=== PATIENT | male | born 1965 | race Hispanic/Latino ===

== ENCOUNTER 2022-12-24 09:07 | Day surgery (SDC) | payer SELFPAY ==
[2022-12-23 13:51] LABS: Absolute Lymphocytes (CBC) 2.3 K/uL (0.7-4.9); Hematocrit 45.8 % (39.6-49.0); Lymphocytes % 36.2 % (15.3-44.8); MCV 89.3 fL (80-100); MPV 7.6 fL (7.6-11.3); RBC Red Blood Cell Count 5.13 M/uL (4.33-5.43)
[2022-12-23 14:02] LABS: Potassium 3.8 mEq/L (3.5-5.1)
[2022-12-24] MEDS ORDERED: Ringers Lactate 1,000 ML IV ONE (09:41)
[2022-12-24] MEDS ORDERED: CEFAZOLIN SODIUM 1 GM/VIAL ONE (09:41)
[2022-12-24] MEDS ORDERED: MIDAZOLAM HCL 2 MG/2 ML INJ ONE (10:33)
[2022-12-24] MEDS ORDERED: FENTANYL CITR 100 MCG/2 ML ONE (10:33)
[2022-12-24] MEDS ORDERED: dexAMETHasone 10 MG/ML VIAL ONE (11:38)
[2022-12-24] MEDS ORDERED: KETOROLAC 30 MG/ML INJ ONE (11:38)
[2022-12-24] MEDS ORDERED: propofoL 200 MG/20 ML VIAL IV ONE (11:38)
[2022-12-24] MEDS ORDERED: LIDOCAINE 2% MPF 5 ML VIAL ONE (11:39)
[2022-12-24] MEDS ORDERED: ONDANSETRON 4 MG/2 ML VIAL ONE (11:40)
--- NOTE | 2022-12-24 13:11 | RAD REPORT ---
EXAM DESCRIPTION: RAD - Wrist Left 2 View - 12/24/2022 12:55 pm CLINICAL HISTORY: Radial fracture FINDINGS: Sideplate and screws affix a radial fracture. Open reduction internal fixation performed. Fluoroscopy time 0.9 minutes. Nineteen fluoroscopic spot images obtained Surgery formed by Dr. Mcconnell
--- NOTE | 2022-12-24 13:42 | EKG ---
Test Date: 2022-12-23 Test Time: 13:41:27 Bioinformatics Software Engineer: JEFFREY MEASUREMENT RESULTS: Intervals: Rate: 78 NJ: 146 QRSD: 96 QT: 368 QTc: 419 Fults: P: 60 NJ: 146 QRS: 56 T: 60 INTERPRETIVE STATEMENTS: Normal sinus rhythm Normal ECG No previous ECG available for comparison Electronically Signed On 12-24-22 13:38:54 CDT by Andrew Linares
[2022-12-24 15:15] VITALS: BP 123/73; TEMP 98.6; O2SAT 100
--- NOTE | 2022-12-24 19:56 | OP ---
Date of Procedure: 12/24/2022 Surgeon: Sam Mcconnell MD Preoperative Diagnosis: Left intraarticular distal radius fracture, which is displaced. Postoperative Diagnosis: Left intraarticular distal radius fracture, which is displaced. Procedure: Left distal radius open reduction internal fixation. Estimated Blood Loss: Less than 10 cc. Complications: There were no complications. Specimen: No pathology specimens sent. Indications: The patient is a 57-year-old male who unfortunately apparently had his arm crushed by a heavy tool box. He came to see me in my office where x-rays were reviewed, which demonstrated a dis placed distal radius fracture, which is intraarticular, which did have some features of a volar Елена n. He is neurovascularly intact without sign of open injury. He did not have other injuries. Risks , benefits, and alternatives of different methods of treating this have been discussed with the patie nt and at this time, he selects open reduction internal fixation using plate fixation to secure the v olar lip as well as stabilize the intraarticular portion. Risks, benefits, and alternatives of this particular procedure have been discussed with him and his family. He states he understood things as presented. Description Of Procedure: The patient was taken to the operating room and placed in supine position. General anesthesia was obtained by Anesthesia staff. Following this, well-padded tourniquet was pl aced on superior left arm. Left upper extremity was then prepped and draped in usual sterile fashion for procedure. Following this, a standard volar approach of Otoniel was taken down carefully through skin only with meticulous hemostasis being maintained using Bovie electrocautery. This proceeds down to the flexor carpi radialis, which was then revealed and then translated radially to protect the ra dial artery. An incision was made in the sheath, which allows for visualization of the FDL muscle as well as tendon. These were gently swept to the side using a Mcnabb elevator and confirmed using thum b as a functional guide and this was split ulnarward to protect the median nerve. After this the pro nator quadratus was encountered and it was then divided in its mid substance and gently reflected off the fracture fragment as well as the radial shaft. It was found to be very highly volarly displaced and a combination of Mcnabb elevator, manual traction, and reduction techniques were then used to kurt ce this near anatomic position. Both C-arm and lateral radiographs demonstrate that it appears to re gain its height as well as being flushed with the radius. There is a slight amount of loss of radial inclination, but this is due to some comminution. Following this, the Acumed 2 volar radius plate w as then applied in a standard fashion with great care being taken to preserve the buttress effect as well as the plate. The top 2 screw holes were then filled giving a good buttress effect followed by placement of the screws. The most proximal screw hole was left empty as it is sitting a little over towards the cortex and it was felt that the 2 screws were quite stable. The wound was then copiously irrigated and the skin was closed using interrupted nylon sutures. The patient was then placed in a very well-padded sterile dressing as well as a volar splint and taken to recovery room in good condi tion. /BOB Voice ID: [id number] Report ID: [id number]
== END 2022-12-24 14:43 | disposition home or self-care (01) ==
LOC: OR 09:07
PROVIDERS: ATTEND Orthopaedic Surgery
PROC: 0PSJ04Z Reposition Left Radius with Internal Fixation Device, Open Approach (ICD-10-PCS; principal; 2022-12-24 11:30)
DX: S52.572A Other intraarticular fracture of lower end of left radius, initial encounter for closed fracture (principal); Z82.49 Family history of ischemic heart disease and other diseases of the circulatory system; Z83.3 Family history of diabetes mellitus
CPT/HCPCS: 36415; 80048; 85025; 93005; J0690; J1100; J2001; J2250; J2405; J2704; J3010; J7120